=== PATIENT | female | born 1990 | race Hispanic/Latino ===

== ENCOUNTER 2017-05-04 22:43 | Day surgery (SDC) | payer MEDICAID, OTHER ==
[2017-05-04 23:23] VITALS: BMI 42.0
[2017-05-04 23:39] LABS: Amnisure Test No Membranes Rupture (No Rupture)
[2017-05-04 23:40] LABS: Amnisure Internal Control QC ACCEPTABLE (ACCEPTABLE)
[2017-05-04] MEDS ORDERED: Acetaminophen 500 MG TAB PO SCH (23:45)
[2017-05-04 23:55] LABS: FFN Internal QC Analyzer PASS (PASS); FFN Internal QC Cassette PASS (PASS); Fetal Fibronectin Negative (Negative)
[2017-05-05 00:19] LABS: Bilirubin Negative (Negative); Blood, Urine Negative (Negative); Clarity CLEAR (Clear); Glucose, Urine (Dipstick) Negative (Negative); Leukocyte Small (Negative); Nitrite Negative (Negative); Protein, Urine (Dipstick) Trace mg/dL (Neg-Trace); Specific Gravity, Urine 1.019 (1.002-1.036); pH, Urine 6.5 (5.0-9.0)
[2017-05-05 00:21] LABS: Bacteria/HPF 1+ HPF (None Seen); Hyaline Casts/LPF 0-3 HYALINE CAST LPF (0-3 Hyaline); Pathc Cast-AUWi Flag 0.13 (0-2.49); RBC/HPF 0-3 HPF (0-3)
[2017-05-05 00:37] LABS: Renal Epithelial None Seen HPF (0-3); Transitional Epithelial NONE SEEN HPF (0-3); Trichomonas/HPF None Seen HPF (None Seen)
[2017-05-05 00:38] LABS: Crystals/HPF None Seen HPF (Negative); Oval Fat Bodies/HPF None Seen HPF (None Seen)
[2017-05-05] MEDS ORDERED: Acetaminophen 500 MG TAB PO SCH (00:45)
--- NOTE | 2017-05-05 08:27 | PRG ---
DATE OF SERVICE: 05/04/2017 CHIEF COMPLAINT: Back and flank pain. HISTORY OF PRESENT ILLNESS: At the time of presentation, Ms. Goodson is a 26-year-old female who is a t 33 weeks and 5 days, has not yet 7 which care who had her dates established here back in [facility]. The patient presents with complaints of back and flank pain today. She has taken 1 regular tried Tylenol without resolution. She denies any hematuria or dysuria. She denies any fever or chi lls. She denies any vaginal bleeding or leakage of fluid or vaginal discharge. She reports some dec reased movement currently which she attributes to the pain. The patient thinks that she might be having some mild contractions. REVIEW OF SYSTEMS: Per HPI. HISTORY: Please see Labor and Delivery admission record included by reference. PHYSICAL EXAMINATION: VITAL SIGNS: Within normal limits. The patient is afebrile. GENERAL: Nontoxic appearing female in no acute distress. HEENT: Normocephalic, atraumatic. RESPIRATORY: Respirations are unlabored. ABDOMEN: Gravid, nontender. There is no CVA tenderness noted. EXTREMITIES: Without cyanosis, clubbing or edema. NEUROLOGIC: Alert and oriented x3, no focal deficit. GENITOURINARY: Cervix was examined and found to be 1 cm dilated, uneffaced, high station, posterior in position and this is unchanged over approximately 1-1/2 hours. LABORATORY DATA: Urinalysis shows a small amount of pyuria, but is also notable for contamination. fibronectin is negative. AmniSure is negative. ASSESSMENT AND PLAN: 1. A 33 week 5 day intrauterine with category 1 tracing. 2. Back pain, likely related to musculoskeletal changes of . The patient was instructed th at she may use either heat or ice on her back as well and was take 2 extra-strength Tylenol every 6 h ours as needed for pain. Should her symptoms worsen, she has been instructed to return to Labor and Delivery. The patient has also been instructed to establish care as quickly as possible and was given information for Clinic.
== END 2017-05-05 01:15 | disposition home or self-care (01) ==
LOC: L&D/OP 22:43
PROVIDERS: ATTEND Obstetrics & Gynecology Obstetrics
DX: O99.89 Other specified diseases and conditions complicating pregnancy, childbirth and the puerperium (principal); M54.9 Dorsalgia, unspecified; R10.9 Unspecified abdominal pain; Z3A.33 33 weeks gestation of pregnancy; Z87.59 Personal history of other complications of pregnancy, childbirth and the puerperium
CPT/HCPCS: 81001; 82731; 84112; 99285

== ENCOUNTER 2017-05-31 23:46 | Day surgery (SDC) | payer OTHER ==
[2017-06-01 00:14] VITALS: BMI 44.0
--- NOTE | 2017-06-01 00:59 | PDOC.LDHP ---
Labor and Delivery H&P Chief complaint: abdominal pain HPI: 26 year old at 37.5 wks based on 1st trimester ultrasound with expected MELYSSA of 06/17/2017 per patient presents with abdominal pain. She states that she has been experiencing abdominal pressure/vaginal pressure since Sunday night. She was seen in [facility] on Sunday. Patient stats that at that time, they told her that she was dilated to 5 cm. She was instructed to seek care if pain worsened. Patient states that since this morning the pain feels more intense. It is constant pressure that seems to worsen at times. She has not attempted to take anything for pain. Patient endorses mucousy discharge for the past few days. She denies any foul smelling discharge. Current gestational age (weeks): 37 (37.5) Due date: 06/17/17 Dating criteria: first trimester ultrasound Grav: 4 Para: 2 OB History Details: Uncomplicated Current complications: none Abnormal US findings: No Past Medical History: None Current medications: pre- vitamins Previous surgical history: none Social history: none - Physical Exam Vital signs reviewed and normal: yes General: NAD, resting Heart: RRR Lungs: nonlabored breathing Abdomen: gravid Extremeties: no edema FHT: category 1, variability present [place] contractions every: None - Vaginal Exam cm dilated: 4 Effacement: 25% Station: -3 - OB Labs Blood type: O RH: positive Antibody Screen: negative HIV: negative RPR: negative HEPSAg: negative Rubella: immune - Assessment Abdominal pain - Plan Plan: observation in L&D -: 1. Abdominal pain likely 2/2 to UTI vs Vaginitis vs Carlos-Rose - UA to rule out UTI - VP3 to rule out vaginitis - Continue to monitor strip - Recheck in 2 hours - Reassure patient - Check at approximately 01:10 was 4/40/-3 <Connie Sanchez - Last Filed: 06/01/17 02:35> <Rupert Tomlinson - Last Filed: 06/01/17 07:23> Allergies/Adverse Reactions: Allergies Allergy/AdvReac Type Severity Reaction Status Date / Time No Known Allergies Allergy Verified 06/01/17 00:09 Attending Addendum - Attending Addendum Date/Time: 06/01/17 0720 I personally evaluated the patient and discussed the management with Dr. Sanchez I agree with the History, Examination, Assessment and Plan documented above with any addition or exceptions noted below. Addendum. Pt had no cervical change after 2.5hours. Pt d/c home with term precautions. <Rupert Tomlinson - Last Filed: 06/01/17 07:23>
[2017-06-01] MEDS ORDERED: Acetaminophen 500 MG TAB PO PRN (01:11)
[2017-06-01 01:20] LABS: Bilirubin Negative (Negative); Blood, Urine Negative (Negative); Clarity CLEAR (Clear); Glucose, Urine (Dipstick) Negative (Negative); Leukocyte Small (Negative); Nitrite Negative (Negative); Protein, Urine (Dipstick) Negative (Neg-Trace); Specific Gravity, Urine 1.021 (1.002-1.036); pH, Urine 7.5 (5.0-9.0)
[2017-06-01 01:22] LABS: Bacteria/HPF 2+ HPF (None Seen); Hyaline Casts/LPF 0-3 HYALINE CAST LPF (0-3 Hyaline); RBC/HPF 0-3 HPF (0-3)
== END 2017-06-01 03:24 | disposition home or self-care (01) ==
LOC: L&D/OP 23:46
PROVIDERS: ATTEND Obstetrics & Gynecology
DX: O99.89 Other specified diseases and conditions complicating pregnancy, childbirth and the puerperium (principal); R10.9 Unspecified abdominal pain; R10.2 Pelvic and perineal pain; Z3A.37 37 weeks gestation of pregnancy; Z79.899 Other long term (current) drug therapy
CPT/HCPCS: 81003; 81015; 87480; 87510; 87660; 99285

== ENCOUNTER 2017-06-04 15:44 | Day surgery (SDC) | payer OTHER ==
[2017-06-04 16:34] VITALS: BMI 43.0
--- NOTE | 2017-06-04 16:38 | PDOC.LDHP ---
Labor and Delivery H&P Chief complaint: other (elevated BP at clinic 140's/90's.) HPI: Patient is a 26yo at 38.1 by LMP/34w u/s presents for evaluation of elevated blood pressures. Patient with no complaints today. Denies N/V, ADDISON, abdominal pain, vision changes, LOF, vaginal bleeding, and decreased movement. Reports ctx last night but irregularly today. Patient was dilated to 4cm last week at the clinic. Current gestational age (weeks): 38 (1 day) Due date: 06/22/17 Dating criteria: last menstrual period, other (consistent with 3rd trimester sono) Grav: 4 Para: 2 OB History Details: 2 , no complications of or 1 miscarriage Current complications: other (1. Late to care 2. Chlamydia treated , EUGENE pending) Abnormal US findings: No Current medications: pre- vitamins Previous surgical history: none Allergies/Adverse Reactions: Allergies Allergy/AdvReac Type Severity Reaction Status Date / Time No Known Allergies Allergy Verified 06/01/17 00:09 Social history: none - Physical Exam Vital signs reviewed and normal: yes General: NAD Heart: RRR Lungs: nonlabored breathing Abdomen: NTTP Extremeties: no edema FHT: category 1 [place] contractions every: q 5-7min - OB Labs Blood type: O RH: positive Antibody Screen: negative HIV: negative RPR: negative HEPSAg: negative GBS: negative Rubella: immune - Assessment 26yo at 38.1 by LMP/34w sono here for elevated blood pressures in clinic. - monitor vs, no elevated readings thus far - urine creatinine and urine protein pending - no s/sx of pre-eclampsia - likely d/c if all studies negative.
[2017-06-04 16:54] LABS: Creatinine, Urine 175.23 mg/dL (47-110)
--- NOTE | 2017-06-04 17:56 | PDOC.EVN ---
Event Note - Event Note Event Note: Patient continues to be asymptomatic and has had no elevated BP readings. Protein to Creatinine ratio is 0.1. Patient will be discharged home with follow up appt next week at [facility] [place]. Educated on labor signs and symptoms as patient has had some irregular contractions while here.
== END 2017-06-04 18:07 | disposition home or self-care (01) ==
LOC: L&D/OP 15:44
PROVIDERS: ATTEND Obstetrics & Gynecology
DX: O99.89 Other specified diseases and conditions complicating pregnancy, childbirth and the puerperium (principal); R03.0 Elevated blood-pressure reading, without diagnosis of hypertension; O09.33 Supervision of pregnancy with insufficient antenatal care, third trimester; Z3A.38 38 weeks gestation of pregnancy; Z79.899 Other long term (current) drug therapy
CPT/HCPCS: 59025; 82570; 84156; 99283

== ENCOUNTER 2017-06-07 21:31 | Day surgery (SDC) | payer OTHER ==
[2017-06-07 21:59] VITALS: BP 109/55; TEMP 98.4; BMI 44.8
--- NOTE | 2017-06-07 23:08 | PDOC.LDHP ---
Labor and Delivery H&P Chief complaint: contractions HPI: 26 yo here at 38.8 based on 1T US with and MELYSSA of 06/17 presents with complaint of contractions which onset at apprx 1999. She states that contractions are about 5 minutes apart. She denies loss of fluid or vaginal bleeding. She reports normal movement. She was most recently seen here on 06/01 at which time her cervical check was 08/01/. Her has been uncomplicated to this point. Current gestational age (weeks): 38 (38.3) Dating criteria: last menstrual period, first trimester ultrasound Grav: 4 Para: 2 Current complications: none Abnormal US findings: No Current medications: pre- vitamins Previous surgical history: none Social history: none - Physical Exam Vital signs reviewed and normal: yes General: NAD Heart: RRR Lungs: CTAB Abdomen: gravid Extremeties: no edema FHT: category 1, variability present - Vaginal Exam cm dilated: 4 Effacement: 50% Station: -3 - OB Labs Blood type: O RH: positive Antibody Screen: negative HIV: negative RPR: negative HEPSAg: negative GBS: negative Rubella: immune - Assessment Term , latent labor - Plan Plan: observation in L&D -: Cat 1 strip on monitor CVE is only slightly more effaced and has the same dilation as previous documented exam. Contractions are inconsistent At this point pt is not in active labor, will have her get up and walk. Recheck in 2 hours. <Desean Perez - Last Filed: 06/07/17 23:17> <Rupert Tomlinson - Last Filed: 06/08/17 07:38> Allergies/Adverse Reactions: Allergies Allergy/AdvReac Type Severity Reaction Status Date / Time No Known Allergies Allergy Verified 06/01/17 00:09 Review of Systems - Review of Systems Constitutional: reports: no symptoms reported, other EENTM: reports: no symptoms reported Respiratory: reports: no symptoms reported <Rupert Tomlinson - Last Filed: 06/08/17 07:38> Review of Systems - Review of Systems Constitutional: reports: no symptoms reported EENTM: reports: no symptoms reported Respiratory: reports: no symptoms reported Cardiology: reports: no symptoms reported Gastrointestinal/Abdominal: reports: no symptoms reported Genitourinary Symptoms: reports: no symptoms reported Musculoskeletal: reports: no symptoms reported Skin: reports: no symptoms reported Neurological: reports: no symptoms reported Endocrine: reports: no symptoms reported Hematologic/Lymphatic: reports: no symptoms reported All Other Systems: Reviewed and Negative <Rupert Tomlinson - Last Filed: 06/08/17 07:38>
--- NOTE | 2017-06-08 01:11 | PDOC.LDPN ---
Labor & Delivery Progress Note - Subjective Subjective: comfortable, painful contractions - Objective Vital signs reviewed and normal: yes General: NAD Uterine fundus: non tender Dilation: 4 Effacement: 50% Station: -3 FHT: category 1, variability present, absent or minimal variables [place] contractions every: 5-7 - Assessment (1) Term Code(s): Z34.80 - ENCOUNTER FOR SUPRVSN OF NORMAL , UNSP TRIMESTER Current Visit: Yes Status: Acute -: Pt is not making cervical change. Encourage PO fluids. Gave IM stadol for pain. Will send pt home with instructions to return if contractions continue, there is loss of fluid, vaginal bleeding, decreased movement, or if she has contractions spaced 5 min apart for an hour.
== END 2017-06-08 01:25 | disposition home or self-care (01) ==
LOC: L&D/OP 21:31
PROVIDERS: ATTEND Obstetrics & Gynecology
DX: O47.1 False labor at or after 37 completed weeks of gestation (principal); Z3A.38 38 weeks gestation of pregnancy; Z79.899 Other long term (current) drug therapy
CPT/HCPCS: 99283; J0595

== ENCOUNTER 2017-06-14 21:09 | Day surgery (SDC) | payer OTHER ==
[2017-06-14 21:38] VITALS: BMI 43.0
--- NOTE | 2017-06-14 22:18 | PDOC.LDHP ---
Labor and Delivery H&P Chief complaint: contractions HPI: 26 yo at 38.6 by LMP/34w US presents to L&D with complaint of contractions ever 5 minutes for the majority of the day today. She denies associated loss of fluid, vaginal bleeding, or decreased movement. This has been complicated by being late to care and anemia. Her previous deliveries were uncomplicated at term. Current gestational age (weeks): 38 (38.6) Due date: 06/22/17 Dating criteria: last menstrual period, other (34w US) Grav: 4 Para: 3 OB History Details: Current complications: other (Late to care, anemia) Abnormal US findings: No Current medications: pre-karlee vitamins Previous surgical history: none Social history: none - Physical Exam Vital signs reviewed and normal: yes General: NAD, resting, breathing through contractions Heart: RRR Lungs: CTAB Abdomen: NTTP Extremeties: trace edema FHT: category 1, variability present, absent or minimal variables [place] contractions every: 8 - Vaginal Exam cm dilated: 5 Effacement: 50% Station: -1 - OB Labs Blood type: O RH: positive Antibody Screen: negative HIV: negative RPR: negative HEPSAg: negative 1 hour GCT: negative GBS: negative Rubella: immune - Assessment Term , latent labor. - Plan Plan: observation in L&D -: Obs in L&D. CVE is unchanged from previous checks yesterday and 2 weeks ago. Recheck 2 hours from first check today. If she is changing, will admit for labor otherwise will send home with instructions to return if contractions increase in intensity/frequency, loss of fluid, vaginal bleeding, decreased movement. <Desean Perez - Last Filed: 06/14/17 22:15> <Gaby Box - Last Filed: 06/15/17 00:29> Allergies/Adverse Reactions: Allergies Allergy/AdvReac Type Severity Reaction Status Date / Time No Known Allergies Allergy Verified 06/14/17 21:33 Attending Addendum - Attending Addendum Date/Time: 06/15/17 0025 I personally evaluated the patient and discussed the management with Dr. Perez I agree with the History, Examination, Assessment and Plan documented above with any addition or exceptions noted below 26 yuo @38.6 weeks presented c/o ctx. No LOF, VB. (+)FM. SVE 4.5/50/-2. Category 1 FHTs. [place] q8- 10 A/p: IUP @38.6 weeks- Pt ambiulated x 2 hours with no cervical change. D/c home. with follow-up as scheduled at [facility]. <Gaby Box - Last Filed: 06/15/17 00:29>
== END 2017-06-15 00:26 | disposition home or self-care (01) ==
LOC: L&D/OP 21:09
PROVIDERS: ATTEND Family Medicine
DX: O47.1 False labor at or after 37 completed weeks of gestation (principal); Z79.899 Other long term (current) drug therapy; Z3A.38 38 weeks gestation of pregnancy

== ENCOUNTER 2017-06-20 11:17 | Inpatient (IN) | payer OTHER ==
[2017-06-20 11:58] VITALS: BMI 45.8
[2017-06-20] MEDS ORDERED: Promethazine HCl 25 MG/ML VIAL IM PRN ×2 (12:01→16:12)
--- NOTE | 2017-06-20 12:09 | PDOC.LDHP ---
Labor and Delivery H&P Chief complaint: decreased movement HPI: 26 yo F @ 39.5 weeks, dated by LMP (09/15/16) and consistent w/ 1T US, presents due to having decreased movement. Says it started sunday. Says baby does not seem to be moving as much. Says even after she eats or moves around not feeling baby move. Reports having intermittent ctx. Denies any vaginal bleeding, LOF or water breaking. Denies headache, swelling. Denies any other concerns at this time Current gestational age (weeks): 39 (5 days) Due date: 06/22/17 Dating criteria: last menstrual period, first trimester ultrasound Grav: 4 Para: 2 OB History Details: Late to Care Hx of Chlamydia in - Tx and last test negative Obesity Current complications: none Abnormal US findings: No Past Medical History: n/a Current medications: pre-karlee vitamins Previous surgical history: none Social history: none - Physical Exam Vital signs reviewed and normal: yes General: NAD, resting Heart: RRR Lungs: CTAB Abdomen: gravid Extremeties: no edema FHT: category 1, variability present [place] contractions every: No ctx noted - Vaginal Exam cm dilated: 4 Effacement: 25% Station: -1 - OB Labs Blood type: O RH: positive Antibody Screen: negative HIV: negative RPR: negative HEPSAg: negative 1 hour GCT: negative GBS: negative Rubella: immune - Assessment L&D Assessment: medically indicated induction 26 yo F @ 39.5 weeks here for IOL as been having decreased movement. -Late to care -Obesity -Hx of chlamydia, tx - Plan Plan: admit to L&D, labor augmentation if indicated, anesthesia consult for pain management -: IOL -Pt cervix . Will start IOL with pitocin. -Consult Anesthesia for Epidural placement. -Will recheck cervix after pt admitted, pitocin started and epidural placed. -Continuous FHT monitoring. Cat 1 strip. FHT 145. No ctx noted -will check hemagram and check routine OB labs. Hx of Chlamydia during adequately tx -Tx, last check for chlamydia on 06/13/17 was negative <Danielito Benson - Last Filed: 06/20/17 12:06> <Courtney Alexis - Last Filed: 06/20/17 13:21> Allergies/Adverse Reactions: Allergies Allergy/AdvReac Type Severity Reaction Status Date / Time No Known Allergies Allergy Verified 06/14/17 21:33 Attending Addendum - Attending Addendum Date/Time: 06/20/17 1315 I personally evaluated the patient and discussed the management with Dr. Benson. I agree with the History, Examination, Assessment and Plan documented above with any addition or exceptions noted below. 26 yo at 39w5d dated by LMP consistent with 11w1d ultrasound sent from [facility] for decreased FM. Reassuring NST here but given term will admit for induction of labor. course uncomplicated aside from maternal obesity, lapse in care x4mon and +Chlamydia, treated with negative EUGENE on 06/13/16.Cervix dilated to 4.5 cm. Will start induction with pitocin. Cat I FHT. Epidural to be administered at patient request. Cephalic by sutures. EFW= 8lbs. Anticipate . <Courtney Alexis - Last Filed: 06/20/17 13:21>
[2017-06-20] MEDS: Lactated Ringer's 1,000 ML IV SCH ×2 (12:20→16:30)
[2017-06-20 12:47] LABS: Mean Corpuscular Hemoglobin 28.2 pg (27.0-31.0); Mean Corpuscular Volume 85.3 fl (81.0-99.0); Mean Platelet Volume 8.4 fL (7.4-10.4); Platelet Count 241 thou/uL (130-400); Red Blood Cell (RBC) Count 3.91 mill/uL (4.20-5.40); White Blood Cell (WBC) Count 7.3 thou/uL (4.8-10.8)
[2017-06-20] MEDS: LR 500 ML/Oxytocin 10 units 500 ML IV SCH (13:15)
[2017-06-20 13:25] LABS: HBSAg Index 0.18 S/CO (0-0.99); Hep B Surf Ag Non-Reactive S/CO (NonReactive); Syphilis Antibody Nonreactive (Nonreactive); Syphilis Antibody Index 0.19 S/CO (<1.00 Non-Reactive)
--- NOTE | 2017-06-20 15:05 | PDOC.LDPN ---
Labor & Delivery Progress Note - Subjective Subjective: comfortable - Objective Vital signs reviewed and normal: yes General: NAD, resting Uterine fundus: non tender SVE: 15:00 Dilation: 6 Effacement: 50% Station: -1 FHT: category 1 [place] contractions every: 5-6 AROM: clear fluid - Assessment (1) Term Code(s): Z34.80 - ENCOUNTER FOR SUPRVSN OF NORMAL , UNSP TRIMESTER Current Visit: No Status: Acute Plan: continue plan of care, pitocin for augmentation -: @ 39.5 weeks here for IOL. -Currently on pitocin rate of 8. Will continue to titrate up. Ctx ever 5-6 minutes. -Cervical check /-1. AROM. Clear fluid noted. Will recheck in q2hrs for change -Anesthesia consulted- will place epidural for pain management. -Category 1 strip. FHR 145.
[2017-06-20] MEDS ORDERED: Bupivacaine 0.5% 20 ML, Fentanyl 400 MCG in Sodium Chloride 0.9% 72 ML EPIDURAL SCH (15:15)
[2017-06-20] MEDS ORDERED: Lactated Ringer's 500 ML IV PRN (16:12)
[2017-06-20] MEDS ORDERED: Eucerin (Mineral Oil/Petrolatum,White) 30 gm Jar TOP PRN (16:12)
[2017-06-20] MEDS ORDERED: Naloxone HCl 0.4 mg/ml Vial IVP PRN ×2 (16:12)
[2017-06-20] MEDS ORDERED: diphenhydrAMINE 50 MG/ML VIAL IVP PRN (16:12)
[2017-06-20] MEDS ORDERED: ePHEDrine/0.9% NaCl/PF SYRINGE 50 mg/10 ml SLOW IVP PRN (16:12)
[2017-06-20] MEDS ORDERED: Acetaminophen 325 MG TAB PO PRN (16:12)
[2017-06-20] MEDS ORDERED: Ondansetron HCl/PF 4 MG/2 ML Vial IVP PRN (16:12)
[2017-06-20] MEDS ORDERED: Communication Order-Pharmacy FS SCH (16:15)
[2017-06-20] MEDS ORDERED: Fentanyl 4mcg/Marcaine 0.1% Cassette 100 ML EPIDURAL SCH (16:15)
--- NOTE | 2017-06-20 17:05 | PDOC.LDPN ---
Labor & Delivery Progress Note - Subjective Subjective: comfortable - Objective Vital signs reviewed and normal: yes General: NAD, resting Uterine fundus: non tender SVE: 1630 Dilation: 7 Effacement: 100% Station: -2 FHT: category 1, variability present [place] contractions every: 4 AROM: clear fluid - Assessment (1) Term Code(s): Z34.80 - ENCOUNTER FOR SUPRVSN OF NORMAL , UNSP TRIMESTER Current Visit: No Status: Acute (2) Encounter for induction of labor Code(s): Z34.90 - ENCNTR FOR SUPRVSN OF NORMAL , UNSP, UNSP TRIMESTER Current Visit: Yes Status: Acute Plan: continue plan of care, pitocin for augmentation -: @ 39.5 weeks here for IOL. -Currently on pitocin rate of 10. Will continue to titrate up. Ctx every 4 minutes. -Cervical check 7/100/-2 @ 1630. AROM earlier.. Clear fluid noted. Will recheck in q2hrs for change -Anesthesia consulted- epidural placed. Getting good pain control. -Category 1 strip. FHR 145. <Danielito Benson - Last Filed: 06/20/17 17:05> Attending Addendum - Attending Addendum Date/Time: 06/20/17 1740 I personally evaluated the patient and discussed the management with Dr. Benson. I agree with the History, Examination, Assessment and Plan documented above with any addition or exceptions noted below. Pt examined independently. Head in LOP position at 7/100/-1. Cat I FHT. Continue to titrate pitocin per protocol. Anticipate <Courtney Alexis - Last Filed: 06/20/17 17:42>
[2017-06-20] MEDS: Ondansetron HCl/PF 4 MG/2 ML Vial IVP PRN (18:08)
[2017-06-20] MEDS ORDERED: Lidocaine 1% (PF) 30 ML VIAL ONE (18:50)
[2017-06-20] MEDS ORDERED: Bicitra 30 ML UDCUP ONE (18:51)
[2017-06-20] MEDS ORDERED: Misoprostol 200 MCG TAB ONE (19:06)
[2017-06-20] MEDS ORDERED: Methylergonovine 0.2 MG/ML VIAL ONE ×2 (19:17→19:33)
[2017-06-20] MEDS ORDERED: Carboprost 250 MCG/ML AMP ONE (19:22)
[2017-06-20] MEDS ORDERED: Ibuprofen 800 MG TAB PO PRN ×2 (19:59→20:03)
[2017-06-20] MEDS ORDERED: Misoprostol 200 MCG TAB PR PRN (19:59)
[2017-06-20] MEDS ORDERED: LR / Pitocin 40 units/1000 ml 1,000 ML IV PRN (19:59)
[2017-06-20] MEDS ORDERED: Carboprost 250 MCG/ML AMP IM SCH (20:00)
[2017-06-20] MEDS ORDERED: Diphenoxylate HCl/Atropine Tablet PO SCH (20:00)
[2017-06-20] MEDS ORDERED: Methylergonovine 0.2 MG/ML VIAL IM SCH ×2 (20:00)
[2017-06-20] MEDS ORDERED: LR / Pitocin 40 units/1000 ml 1,000 ML ONE (20:04)
[2017-06-20] MEDS ORDERED: Ibuprofen 800 MG TAB PO ONE (20:05)
--- NOTE | 2017-06-20 20:10 | PDOC.OPDEL ---
OB Operative/Delivery Note Delivery Dr/Surgeon: Dr. Burns Assist: Dr. Queen; Attending: Dr. Alexis Pre-Delivery Diagnosis: medically indicated induction (decreased movement) Procedure/Post Delivery Dx: spontaneous vaginal delivery Weeks gestation: 39 (39.5) Anesthesia: epidural - Findings A Sex: male - 1 min: 8 - 5 min: 9 - Additional Findings/Plan Placenta delivered: spontaneous Repaired Obstetrical Laceration: none Estimated blood loss: 1000 ml Post delivery plan: routine recovery <Farida Kerr - Last Filed: 06/20/17 20:08> Attending Addendum - Attending Addendum Date/Time: 06/21/17 1105 I personally evaluated the patient and discussed the management with Dr Burns. I agree with the History, Examination, Assessment and Plan documented above with any addition or exceptions noted below. I was present for and assisted in the entire delivery 26 yo [id number] status post complicated by PPH. After delivery of the placenta the patient was noted to have continued bleeding. The cervix and vagina were inspected and no lacerations were noted. The uterus was explored manually and the lower uterine segment was noted to be atonic. Some trailing membranes were removed with temporary improvement in uterine tone. 800mcg of misoprostal was placed rectally. Continued bleeding noted. Tone improved with uterine massage but immediately became atonic once massage stopped. 0.2mg of methergine given with persistent atony so 250mcg hemabate administered. Uterine massage continued. OB laborist, Dr. Chin was consulted. He examined patient and continued uterine massage with eventual improvement in tone. Total EBL was 1000 mL. Vitals stable during hemorrhage. <Courtney Alexis - Last Filed: 06/21/17 11:24>
[2017-06-20] MEDS: CEFAZOLIN 1 GM, Syringe 2.5 ML in Sterile Water 7.5 ML SLOW IVP SCH (21:46)
[2017-06-20] MEDS ORDERED: CEFAZOLIN 1 GM in Sodium Chloride 0.9% 100 ML IVPB SCH (22:00)
[2017-06-21] MEDS: Ondansetron HCl/PF 4 MG/2 ML Vial IVP PRN (00:21)
[2017-06-21] MEDS ORDERED: Bisacodyl 10 MG SUPP PR PRN (00:33)
[2017-06-21] MEDS ORDERED: Adacel (T-DAP) 0.5 ML VIAL IM ONE (00:33)
[2017-06-21] MEDS ORDERED: Lanolin Ointment 7 GM TUBE TOP PRN (00:33)
[2017-06-21] MEDS ORDERED: LR / Pitocin 40 units/1000 ml 1,000 ML IV SCH (00:33)
[2017-06-21] MEDS ORDERED: Preparation H Ointment 28 GM TUBE PR PRN (00:33)
[2017-06-21] MEDS ORDERED: Milk Of Magnesia 30 ML UDCUP PO PRN (00:33)
[2017-06-21] MEDS ORDERED: Benzocaine/Menthol 20-0.5% 60 ML CAN TOP PRN (00:33)
[2017-06-21 01:02] LABS: Hemoglobin 9.3 g/dL (12.0-16.0); Platelet Count 207 thou/uL (130-400)
[2017-06-21] MEDS: Misoprostol 100 MCG TAB VAG SCH ×3 (01:59→08:53)
[2017-06-21] MEDS: Ibuprofen 800 MG TAB PO SCH ×4 (01:59→21:26)
[2017-06-21] MEDS: Docusate Calcium (SURFAK) 240 MG CAP PO SCH ×3 (01:59→21:26)
--- NOTE | 2017-06-21 03:46 | CON ---
DATE OF CONSULTATION: 06/20/2017 ATTENDING PHYSICIAN: Courtney Alexis D.O. CONSULTING PHYSICIAN: Jon Chin M.D. HISTORY OF PRESENT ILLNESS: Ms. Goodson is a 26-year-old multigravida who is now just status post vaginal delivery who I was asked, evaluate for bleeding. She had an uneventful vagi nal delivery over an intact perineum with [place] placental delivery. She had bleeding immediately a fter delivery and at the time of my arrival, she had been given Methergine, Hemabate, and Cytotec. PHYSICAL EXAMINATION: VITAL SIGNS: Her vital signs are stable. She has been afebrile throughout her labor. She is alert and oriented, but does appear pale. ABDOMEN: On examination, her abdomen is soft, nontender, and nondistended. Her uterus is boggy upon bimanual exam and I did obtain clot from lower uterine segment. A second dose of Methergine 0.2 mg IM was ordered by me and I continued with uterine massage. Her dosages of Methergine, Cytotec, and H emabate had been given about 15 minutes prior to my arrival. With good bimanual compression, the pat ient's bleeding quickly stopped. The cervix was evaluated and there was no evidence of lacerations. ASSESSMENT: hemorrhage status post vaginal delivery, now resolved. PLAN: At this time, I suggested that she will be given scheduled doses of Cytotec 200 mg p.o. q.6 ho urs and to obtain an H and H. The patient was typed and crossed for 2 units. She will be watched cl osely.
[2017-06-21] MEDS: CEFAZOLIN 1 GM, Syringe 2.5 ML in Sterile Water 7.5 ML SLOW IVP SCH ×2 (05:36→13:53)
[2017-06-21 05:48] LABS: Hemoglobin 7.9 g/dL (12.0-16.0); Mean Corpuscular HGB CONC 32.2 g/dL (32.0-36.0); Mean Corpuscular Hemoglobin 27.2 pg (27.0-31.0); Mean Corpuscular Volume 84.7 fl (81.0-99.0); Platelet Count 189 thou/uL (130-400); Red Blood Cell (RBC) Count 2.89 mill/uL (4.20-5.40); White Blood Cell (WBC) Count 11.2 thou/uL (4.8-10.8)
--- NOTE | 2017-06-21 07:59 | PDOC.PP ---
Post Progress Note Post Day #: 1 Subjective: Pt reports doing well. Is resting at this time. Denies any headache, dizziness, or lightheadness. Says she has gotten up and went to the bathroom and didn't have any problems. Has not eaten anything yet. Reports not passing gas or having bowel movement at this time. Having minimal pain. Reports normal lochia. Denies any increased heavy bleeding. PO intake tolerated: yes Flatus: no Ambulation: yes Vital Signs (12 hours) Temp Pulse Resp BP Pulse Ox 06/21/17 04:00 98.6 F 73 20 06/21/17 01:30 98.6 F 77 18 139/77 06/21/17 00:35 99.0 F 72 18 06/21/17 00:33 99.0 F 72 18 120/72 99 06/21/17 00:00 98.5 F 74 20 Weight Weight 113.852 kg - Physical Examination General: NAD Cardiovascular: no m/r/g, RRR Respiratory: clear to auscultation bilaterally, non-labored breathing Abdominal: + bowel sounds, appropriately TTP Fundus firm & at: Umbilicus Extremities: negative homans (B) Skin: no rash Neurological: no gross focal deficits Psychiatric: A&Ox3, normal affect Result Diagrams: 06/21/17 05:18 Additional Labs: Post Labs Blood Type O POSITIVE 06/20/17 12:20 Hep Bs Antigen Non-Reactive S/CO (NonReactive) 06/20/17 12:20 (1) Term delivered Code(s): O80 - ENCOUNTER FOR FULL-TERM UNCOMPLICATED DELIVERY Status: Acute (2) Encounter for induction of labor Code(s): Z34.90 - ENCNTR FOR SUPRVSN OF NORMAL , UNSP, UNSP TRIMESTER Status: Acute (3) hemorrhage Code(s): O72.1 - OTHER IMMEDIATE HEMORRHAGE Status: Acute - Assessment/Plan 26 yo -->3 delivered a TAGA male on 06/20 via . Had hemorrhage in which EBL was 1000. Received Methergine x2, cytotec, hemobate and lomotil. -Pt reports having normal lochia this morning. No heavy bleeding. Denies any signs and sx's of blood loss. uterus firm and at umbilicus.. Hgb dropped down to 7.9. On Ferrous Sulfate BID. Will continue to monitor. -Routine care. -Breast and bottle feeding. Denies any problems at this time. -Continue to monitor pain and tx accordingly. <Danielito Benson - Last Filed: 06/21/17 07:56> Vital Signs (12 hours) Temp Pulse Resp BP BP Pulse Ox 06/21/17 07:48 98.6 F 81 18 98/50 L 06/21/17 04:00 98.6 F 73 20 06/21/17 01:30 98.6 F 77 18 139/77 06/21/17 00:35 99.0 F 72 18 06/21/17 00:33 99.0 F 72 18 120/72 99 06/21/17 00:00 98.5 F 74 20 Weight Weight 113.852 kg Result Diagrams: 06/21/17 05:18 Additional Labs: Post Labs Blood Type O POSITIVE 06/20/17 12:20 Hep Bs Antigen Non-Reactive S/CO (NonReactive) 06/20/17 12:20 <Courtney Alexis - Last Filed: 06/21/17 11:31> Attending Addendum - Attending Addendum Date/Time: 06/21/17 1127 I personally evaluated the patient and discussed the management with Deny Benson and Abdirahman. I agree with the History, Examination, Assessment and Plan documented above with any addition or exceptions noted below. 26 yo [id number] PPD #1 s/p complicated by immediate PPH due to uterine atony. Pt doing well today. Denies dizziness with ambulation, CP, SOB. Lochia= menses today. Acute blood loss anemia, asymptomatic and on PO Iron. Continue routine care. Anticipate d/c to home tomorrow. <Courtney Alexis - Last Filed: 06/21/17 11:31>
[2017-06-21] MEDS: LR 500 ML/Oxytocin 10 units 500 ML IV SCH (08:52)
[2017-06-21] MEDS: Prenatal Vitamin 1 TAB PO SCH (09:13)
[2017-06-21] MEDS: Ferrous Sulfate 325 MG TAB PO SCH ×2 (09:13→18:12)
[2017-06-21] MEDS: Lactated Ringer's 1,000 ML IV SCH (12:50)
[2017-06-21] MEDS ORDERED: Bupivacaine 0.25% HCL 30 ML VIAL ONE (13:38)
[2017-06-22] MEDS: Lactated Ringer's 1,000 ML IV SCH ×3 (00:12→08:09)
[2017-06-22] MEDS: Ibuprofen 800 MG TAB PO SCH (05:45)
[2017-06-22 08:03] VITALS: BP 115/68; TEMP 98.6
[2017-06-22] MEDS: Docusate Calcium (SURFAK) 240 MG CAP PO SCH (08:05)
[2017-06-22] MEDS: Prenatal Vitamin 1 TAB PO SCH (08:05)
[2017-06-22] MEDS: Ferrous Sulfate 325 MG TAB PO SCH (08:05)
--- NOTE | 2017-06-22 08:07 | PDOC.PP ---
Post Progress Note Post Day #: 2 Subjective: Pt reports doing okay this morning. Says overnight started having some more abdominal pain and cramping. Also reports having a little headache. Denies any dizziness, lightheadness, or vision changes. Has been getting up and moving around and denies being lightheaded or having imbalance. Denies any fever or chills. Reports lochia being light at this time. Denies any trouble with urination. Pt states that abdominal pain not being adequately controlled at this time. PO intake tolerated: yes Flatus: yes Ambulation: yes Vital Signs (12 hours) Temp Pulse Resp BP Pulse Ox 06/22/17 08:01 98.6 F 80 18 115/68 98 Weight Weight 113.852 kg - Physical Examination General: NAD Cardiovascular: no m/r/g Respiratory: clear to auscultation bilaterally, non-labored breathing Abdominal: + bowel sounds, lochia (Light), no distention Deviation from normal: Mildly Tender to palpation of uterus Fundus firm & at: 2 fingers below umbilicus Extremities: negative homans (B) Skin: no rash Perineum: Normal, no excessive swelling or bruising noted Neurological: no gross focal deficits Psychiatric: A&Ox3, normal affect Result Diagrams: 06/21/17 05:18 Additional Labs: Post Labs Blood Type O POSITIVE 06/20/17 12:20 Hep Bs Antigen Non-Reactive S/CO (NonReactive) 06/20/17 12:20 (1) Term delivered Code(s): O80 - ENCOUNTER FOR FULL-TERM UNCOMPLICATED DELIVERY Status: Acute (2) Encounter for induction of labor Code(s): Z34.90 - ENCNTR FOR SUPRVSN OF NORMAL , UNSP, UNSP TRIMESTER Status: Acute (3) hemorrhage Code(s): O72.1 - OTHER IMMEDIATE HEMORRHAGE Status: Acute - Assessment/Plan 26 yo -->3 delivered a TAGA male on 06/20 via . Had hemorrhage in which EBL was 1000. Received Methergine x2, cytotec, hemobate and lomotil. 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 No heavy bleeding. Denies any signs and sx's of blood loss. uterus firm and below umbilicus. Hgb dropped down to 7.9 yesterday. On Ferrous Sulfate BID. Will continue to monitor. Vital signs stable and has been getting up moving around and denies any sx's of lightheadness or weakness. -Routine care. -Breast and bottle feeding. Denies any problems at this time. -Having increased abdominal pain. Ibuprofen johanna. Will johanna Tylenol as well and see if helps keep on top of pain. Will continue to assess. No sign of fever or chills at this time. <Danielito Benson - Last Filed: 06/22/17 08:08> Vital Signs (12 hours) Temp Pulse Resp BP Pulse Ox 06/22/17 08:26 98.6 F 80 18 97 06/22/17 08:01 98.6 F 80 18 115/68 98 Weight Weight 113.852 kg Result Diagrams: 06/21/17 05:18 Additional Labs: Post Labs Blood Type O POSITIVE 06/20/17 12:20 Hep Bs Antigen Non-Reactive S/CO (NonReactive) 06/20/17 12:20 <Courtney Alexis - Last Filed: 06/22/17 09:18> Attending Addendum - Attending Addendum Date/Time: 06/22/17 0916 I personally evaluated the patient and discussed the management with Deny Gary and margi I agree with the History, Examination, Assessment and Plan documented above with any addition or exceptions noted below. Doing well this morning. Bleeding minimal. Denies dizziness with ambulation, CP or SOB. Mild ADDISON improved with acetaminophen. No ADDISON, Vision changes or BP elevations. Stable to d/c to home today. Followup in 2 weeks in [facility]. Routine counseling completed. <Courtney Alexis - Last Filed: 06/22/17 09:18>
[2017-06-22] MEDS: LR 500 ML/Oxytocin 10 units 500 ML IV SCH (08:18)
[2017-06-22] MEDS ORDERED: Acetaminophen 325 MG TAB PO SCH (09:00)
== END 2017-06-22 11:38 | disposition home or self-care (01) | DRG 774 ==
LOC: L&D/OP 11:17 → L&D 12:12 → 3SW 06-21 00:29
PROVIDERS: ADMIT Family Medicine; ATTEND Family Medicine
PROC: 10E0XZZ Delivery of Products of Conception, External Approach (ICD-10-PCS; principal; 2017-06-20)
PROC: 3E033VJ Introduction of Other Hormone into Peripheral Vein, Percutaneous Approach (ICD-10-PCS; 2017-06-20)
DX: O36.8130 Decreased fetal movements, third trimester, not applicable or unspecified (principal); O98.82 Other maternal infectious and parasitic diseases complicating childbirth; D62 Acute posthemorrhagic anemia; E66.01 Morbid (severe) obesity due to excess calories; Z68.42 Body mass index [BMI] 45.0-49.9, adult; Z37.0 Single live birth; O99.214 Obesity complicating childbirth; Z3A.39 39 weeks gestation of pregnancy; O72.1 Other immediate postpartum hemorrhage; O67.9 Intrapartum hemorrhage, unspecified; O99.02 Anemia complicating childbirth
CPT/HCPCS: 36415; 51702; 85014; 85018; 85027; 85049; 86780; 86850; 86900; 86901; 87340; 99285; A4216; J0690; J2001; J2210; J2405; J3010; J3490; J7050; J7120; S0020

== ENCOUNTER 2018-06-24 18:02 | Emergency (ER) | payer SELFPAY ==
[2018-06-24] MEDS ORDERED: Ondansetron PF 4 MG/2 ML Vial ONE ×2 (18:39→18:56)
[2018-06-24 19:02] LABS: #Eosinphils 0.2 thou/uL (0.0-0.7); #Lymphocytes 1.1 thou/uL (1.20-3.40); #Monocytes 0.3 thou/uL (0.11-0.59); #Neutrophils 3.7 thou/uL (1.40-6.50); %Basophils 0.6 % (0.0-1.0); %Eosinophils 4.1 % (0.0-10.0); %Lymphocytes 20.1 % (21.0-51.0); %Monocytes 5.7 % (0.0-10.0); %Neutrophils 69.5 % (42.0-75.0); Hemoglobin 12.6 g/dL (12.0-16.0); Mean Corpuscular HGB CONC 32.1 g/dL (32.0-36.0); Mean Corpuscular Hemoglobin 28.6 pg (27.0-31.0); Mean Corpuscular Volume 89.3 fL (78.0-98.0); Platelet Count 196 thou/uL (130-400); RBC Distribution Width 13.3 % (11.5-14.5); Red Blood Cell (RBC) Count 4.41 mill/uL (4.20-5.40); White Blood Cell (WBC) Count 5.3 thou/uL (4.8-10.8)
[2018-06-24 19:06] LABS: BHCG - Serum Negative (NEGATIVE); Pregs Control Background? CLEAR/WHITE (CLR/WHITE); Pregs Control Bar Appear? YES (CONTROL BAR)
[2018-06-24 19:20] LABS: ALT (SGPT) 20 U/L (8-55); AST (SGOT) 22 U/L (5-34); Albumin 4.1 g/dL (3.5-5.0); Alkaline Phosphatase 120 U/L (40-150); Anion Gap 14 mmol/L (10-20); BUN (Urea Nitrogen) 12 mg/dL (7.0-18.7); Bilirubin, Total 0.5 mg/dL (0.2-1.2); Calc. Creatinine Clearance 0 mL/min (70-130); Calcium 8.3 mg/dL (7.8-10.44); Carbon Dioxide 18 mmol/L (22-29); Chloride 111 mmol/L (98-107); Estimated GFR-MDRD Greater than 90; Globulin 2.9 g/dL (2.4-3.5); Glucose 94 mg/dL (70-105); Lipase 16 U/L (8-78); Potassium 3.8 mmol/L (3.5-5.1); Sodium 139 mmol/L (136-145)
[2018-06-24] MEDS ORDERED: Dicyclomine 20 MG TAB ONE (19:33)
[2018-06-24] MEDS ORDERED: Ketorolac Tromethamine 30 MG/ML VIAL ONE (19:33)
== END 2018-06-24 20:08 | disposition home or self-care (01) ==
LOC: SCSER 18:02
DX: K52.9 Noninfective gastroenteritis and colitis, unspecified (principal)
CPT/HCPCS: 80053; 83605; 83690; 84703; 85025; 96361; 96374; 96375; J1885; J2405

== ENCOUNTER 2019-02-25 20:03 | Emergency (ER) | payer BC ==
--- NOTE | 2019-02-25 21:01 | RAD ---
EXAM: Chest PA and lateral: HISTORY: Fever and cough COMPARISON: None FINDINGS: Heart size:Within normal limits. Lungs:Clear of acute process. No confluent pneumonia, overt edema, pleural effusion, or other acute process. IMPRESSION: No significant acute intrathoracic disease.
== END 2019-02-25 21:08 | disposition home or self-care (01) ==
LOC: SCSER 20:03
DX: J06.9 Acute upper respiratory infection, unspecified (principal)
CPT/HCPCS: 71046